=== PATIENT | female | born 1990 | race African-American/Black ===

== ENCOUNTER 2025-04-22 17:59 | Emergency (ER) | payer SELFPAY ==
[~2025-04-22] VITALS: Ht 167.6 cm; Wt 75.0 kg
[2025-04-22 18:23] VITALS: O2SAT 100
[2025-04-22 19:01] LABS: CLARITY URINE CLEAR (CLEAR); COLOR URINE DARK YELLOW (YELLOW); GLUCOSE URINE NEGATIVE (NEGATIVE); KETONES URINE TRACE (NEGATIVE); LEUKOCYTE ESTERASE URINE NEGATIVE (NEGATIVE); NITRITE URINE NEGATIVE (NEGATIVE); OCCULT BLOOD URINE NEGATIVE (NEGATIVE); PH URINE 5.5 (4.5-8.0); PROTEIN URINE NEGATIVE (NEGATIVE); SPECIFIC GRAVITY URINE 1.020 (1.005-1.030); UROBILINOGEN URINE 0.2 E.U./dL (0.2-1.0)
[2025-04-22 19:22] VITALS: BP 118/74; PULSE 62; RESP 18; TEMP 36.8; O2SAT 100
== END 2025-04-22 19:20 | disposition home or self-care (01) ==
LOC: ER 17:59
DX: L50.9 Urticaria, unspecified (principal); Z88.0 Allergy status to penicillin; Z90.89 Acquired absence of other organs
CPT/HCPCS: 81003; 81025; 99283

== ENCOUNTER 2025-05-01 17:37 | Emergency (ER) | payer SELFPAY ==
[~2025-05-01] VITALS: Ht 162.6 cm; Wt 67.0 kg
[2025-05-01 17:44] VITALS: O2SAT 100
[2025-05-01] MEDS: FAMOTIDINE 20MG TABLET PO ONE (19:04)
[2025-05-01] MEDS: METHYLPREDNISOLONE SOD SUCC 125MG/2ML (ACT-O-VIAL) IM ONE (19:05)
[2025-05-01] MEDS: DIPHENHYDRAMINE 50MG/ML VIAL IM ONE (19:06)
[2025-05-01] MEDS ORDERED: P50 MT (19:12)
[2025-05-01] MEDS ORDERED: FAMO20TA8 MT (19:12)
[2025-05-01] MEDS ORDERED: DIPH25CA83 MT (19:12)
[2025-05-01 19:32] VITALS: BP 95/68; PULSE 84; RESP 16; TEMP 36.6; O2SAT 100
== END 2025-05-01 19:35 | disposition home or self-care (01) ==
LOC: ER 17:37
DX: L50.9 Urticaria, unspecified (principal); Z88.0 Allergy status to penicillin; Z90.89 Acquired absence of other organs
CPT/HCPCS: 81025; 96372; 99284; J1200; J2919; Z7610

== ENCOUNTER 2025-05-04 05:48 | Emergency (ER) | payer SELFPAY ==
[~2025-05-04] VITALS: Ht 165.1 cm; Wt 59.0 kg
[~2025-05-04 05:48] MED LIST: DIPH25CA83 MT; FAMO20TA8 MT; P50 MT
[2025-05-04 05:55] VITALS: O2SAT 99
[2025-05-04] MEDS: FAMOTIDINE 20MG TABLET PO ONE (06:37)
[2025-05-04] MEDS: DEXAMETHASONE 2MG TABLET PO ONE (06:37)
[2025-05-04 06:42] VITALS: BP 118/56; PULSE 79; RESP 14; TEMP 36.8; O2SAT 97
== END 2025-05-04 06:46 | disposition home or self-care (01) ==
LOC: ER 05:48
DX: T78.40XA Allergy, unspecified, initial encounter (principal); Z90.89 Acquired absence of other organs; Z88.0 Allergy status to penicillin; X58.XXXA Exposure to other specified factors, initial encounter; Y93.89 Activity, other specified; Y92.89 Other specified places as the place of occurrence of the external cause; Y99.8 Other external cause status
CPT/HCPCS: 99282; J8540

== ENCOUNTER 2025-06-11 18:38 | Emergency (ER) | payer SELFPAY ==
[~2025-06-11] VITALS: Ht 165.1 cm; Wt 78.0 kg
[2025-06-11 18:40] VITALS: BP 109/77; TEMP 36.8; O2SAT 100
[2025-06-11 18:47] VITALS: PULSE 66; RESP 16; O2SAT 100
== END 2025-06-11 22:43 | disposition left against medical advice (07) ==
LOC: ER 18:38
DX: Z00.00 Encounter for general adult medical examination without abnormal findings (principal); Z53.21 Procedure and treatment not carried out due to patient leaving prior to being seen by health care provider